=== PATIENT | female | born 1990 ===

== ENCOUNTER 2017-06-25 08:34 | Emergency (ER) | payer OTHER ==
[2017-06-25 08:52] VITALS: RESP 18; TEMP 98.3
[2017-06-25] MEDS ORDERED: Albuterol-Ipratrop 3 mg / 0.5 (3 ml) UD IH STA (09:26)
--- NOTE | 2017-06-25 09:34 | ED PDOC ---
Arrival/HPI - General Chief Complaint: Cough, Cold, Congestion Time Seen by Provider: 06/25/17 09:17 Historian: Patient - History of Present Illness Narrative History of Present Illness (Text): 06/25/17 09:26 A 27 year old female, whose past medical history includes asthma as a child, presents to the emergency department with a complaint of approximately 3 day duration congestion, chest tightness, and cough with yellow phlegm. The patient states that it is difficult to take a deep breath and that the coughing worsens at night. She notes that she has been taking Mucinex for her symptoms with no relief. The patient denies fevers, chills, dizziness, sore throat, abdominal pain, nausea, vomiting, diarrhea, back pain, neck pain, urinary/bowel changes, or any other complaint. PMD: None Time/Duration: Other (3 Days) Symptom Onset: Sudden Symptom Course: Unchanged Activities at Onset: Rest, Light Context: Home Past Medical History - Provider Review Nursing Documentation Reviewed: Yes - Infectious Disease Hx of Infectious Diseases: None - Pulmonary Hx Asthma: Yes - Psychiatric Hx Substance Use: No Family/Social History - Physician Review Nursing Documentation Reviewed: Yes Family/Social History: No Known Family HX Smoking Status: Never Smoked Hx Alcohol Use: No Hx Substance Use: No Allergies/Home Meds Allergies/Adverse Reactions: Allergies No Known Allergies Allergy (Verified 06/25/17 08:47) Review of Systems - Physician Review All systems were reviewed & negative as marked: Yes - Review of Systems Constitutional: absent: Fevers, Night Sweats ENT: Rhinorrhea, Sinus Congestion. absent: Sore Throat Respiratory: Cough, Sputum (Yellow) Cardiovascular: Other (Chest tightness) Gastrointestinal: absent: Abdominal Pain, Stool Changes, Diarrhea, Nausea, Vomiting Genitourinary Female: absent: Urine Output Changes Musculoskeletal: absent: Back Pain, Neck Pain Neurological: absent: Dizziness Physical Exam Vital Signs Reviewed: Yes Vital Signs Temp Pulse Resp BP Pulse Ox 06/25/17 11:28 89 18 113/71 97 06/25/17 08:45 98.3 F 96 H 18 111/74 98 Temperature: Afebrile Blood Pressure: Normal Pulse: Tachycardic Respiratory Rate: Normal Appearance: Positive for: Well-Appearing, Non-Toxic, Comfortable Pain Distress: None Mental Status: Positive for: Alert and Oriented X 3 - Systems Exam Head: Present: Atraumatic, Normocephalic Pupils: Present: PERRL Extroacular Muscles: Present: EOMI Conjunctiva: Present: Normal Mouth: Present: Moist Mucous Membranes Neck: Present: Normal Range of Motion Respiratory/Chest: Present: Good Air Exchange, Wheezes (Trace expiratory wheezing. ) Cardiovascular: Present: Regular Rate and Rhythm, Normal S1, S2. No: Murmurs Abdomen: Present: Normal Bowel Sounds. No: Tenderness, Distention, Peritoneal Signs Back: Present: Normal Inspection Upper Extremity: Present: Normal Inspection. No: Cyanosis, Edema Lower Extremity: Present: Normal Inspection. No: Edema Neurological: Present: GCS=15, CN II-XII Intact, Speech Normal Skin: Present: Warm, Dry, Normal Color. No: Rashes Psychiatric: Present: Alert, Oriented x 3, Normal Insight, Normal Concentration Medical Decision Making ED Course and Treatment: 06/25/17 09:35 Impression: A 27 year old female presents to the emergency department with chest tightness, cough, and congestion for the past 3 days. Differential Diagnosis included but are not limited to: Rule out PNA vs. asthma exacerbation Plan: -- Chest X-ray -- Tylenol and Duoneb -- Reassess and disposition Progress Notes: CHEST X-RAY Dictator : Jose Hester MD Report Date : 06/25/2017 11:06:43 IMPRESSION: No active disease. 06/27/17 12:44 Paitent is feeling much better. CXR is normal. Influenza negative. Patient will follow up with primary care doctor and return to the ED if symptoms worsen. Advised to take Robitussion, Prednisone and Albuterol as prescribed. - Lab Interpretations Lab Results: Lab Results 06/25/17 10:00: Urine HCG, Qual Negative 06/25/17 09:50: Influenza Typ A,B (EIA) Negative for flu a/b - RAD Interpretation Radiology Orders: 06/25/17 09:26 CHEST TWO VIEWS (PA/LAT) [RAD] Stat - Medication Orders Current Medication Orders: Discontinued Medications Acetaminophen (Tylenol 325mg Tab) 975 mg PO STAT STA Stop: 06/25/17 09:27 Last Admin: 06/25/17 09:54 Dose: 975 mg MAR Pain/Vitals Document 06/25/17 09:54 EQ (Rec: 06/25/17 09:54 EQ [id number]) Pain Reassessment Is This A Pain ReAssessment? No Sleep Is patient sleeping during reassessment? No Presence of Pain Presence of Pain Yes Pain Scale Used Pain Scale Used Numeric Albuterol/Ipratropium (Duoneb 3 Mg/0.5 Mg (3 Ml) Ud) 3 ml IH STAT STA Stop: 06/25/17 09:27 Last Admin: 06/25/17 09:54 Dose: 3 ml - Scribe Statement The provider has reviewed the documentation as recorded by the Dimitri Joiner Provider Scribe Attestation: All medical record entries made by the Scribe were at my direction and personally dictated by me. I have reviewed the chart and agree that the record accurately reflects my personal performance of the history, physical exam, medical decision making, and the department course for this patient. I have also personally directed, reviewed, and agree with the discharge instructions and disposition. Disposition/Present on Arrival - Present on Arrival Any Indicators Present on Arrival: No History of DVT/PE: No History of Uncontrolled Diabetes: No Urinary Catheter: No History of Decub. Ulcer: No History Surgical Site Infection Following: None - Disposition Have Diagnosis and Disposition been Completed?: Yes Diagnosis: URI (upper respiratory infection) Disposition: HOME/ ROUTINE Disposition Time: 11:28 Patient Plan: Discharge Condition: IMPROVED Discharge Instructions (ExitCare): Asthma (ED), Upper Respiratory Infection (ED ) Additional Instructions: Ms Stanford, thank you for letting us take care of you today. Your provider was Dr. Skinner. You were treated for Asthma, Upper Respiratory Infection. The emergency medical care you received today was directed at your acute symptoms. If you were prescribed any medication, please fill it and take as directed. It may take several days for your symptoms to resolve. Return to the Emergency Department if your symptoms worsen, do not improve, or if you have any other problems. Please contact your doctor or call one of the physicians/clinics you have been referred to that are listed on the Patient Visit Information form that is included in your discharge packet. Bring any paperwork you were given at discharge with you along with any medications you are taking to your follow up visit. Our treatment cannot replace ongoing medical care by a primary care provider (PCP) outside of the emergency department. Thank you for allowing the [facility] team to be part of your care today. If you had an X-Ray or CT scan: A Radiologist will review the ED reading if any change in treatment is needed we will contact you. If you had a blood, urine, or wound culture: It will take several days for the results, if any change in treatment is needed we will contact you. If you had an STI test: It will take 48 hours for the results. Please call after 1 week if you have not heard back. Prescriptions: Albuterol HFA [Ventolin HFA 90 mcg/actuation (8 g)] 2 puff IH Q4 #1 puff Guaifenesin/Pseudoephedrne HCl [Mucinex D ER 1,200-120 mg Tab] 1 each PO BID PRN #20 tab.er.12h PRN Reason: congestion predniSONE [predniSONE Tab] 40 mg PO DAILY #10 tab Referrals: Klaus Teague MD [Staff Provider] - Follow up with primary Forms: [facility] (Angolan), WORK NOTE
--- NOTE | 2017-06-25 11:08 | RAD ---
HISTORY: cough r/o pna COMPARISON: No prior. TECHNIQUE: Chest PA and lateral FINDINGS: LUNGS: No active pulmonary disease. PLEURA: No significant pleural effusion identified. No pneumothorax apparent. CARDIOVASCULAR: Normal. OSSEOUS STRUCTURES: No significant abnormalities. VISUALIZED UPPER ABDOMEN: Normal. OTHER FINDINGS: None. IMPRESSION: No active disease.
[2017-06-25 11:29] VITALS: BP 113/71; PULSE 89; O2SAT 97
== END 2017-06-25 11:43 | disposition home or self-care (01) ==
LOC: ED 08:34
DX: J06.9 Acute upper respiratory infection, unspecified (principal)

== ENCOUNTER 2017-07-26 14:39 | Emergency (ER) | payer BC, OTHER ==
[2017-07-26 15:14] VITALS: PULSE 100; TEMP 98.5
[2017-07-26 15:35] LABS: BASO # 0.01 K/mm3 (0.0-2.0); BASO % 0.2 % (0.0-3.0); EOS % 0.2 % (1.5-5.0); GRAN # 3.84 (1.4-6.5); GRAN % 75.7 % (50.0-68.0); HEMOGLOBIN 11.8 g/dL (12.0-16.0); LYMPH # 0.8 (1.2-3.4); MEAN CELL VOLUME 91.6 fl (80.0-105.0); MEAN CORPUSCULAR HEMOGLOBIN 30.1 pg (25.0-35.0); MEAN CORPUSCULAR HGB CONC 32.9 g/dl (31.0-37.0); MEAN PLATELET VOLUME 10.7 fl (7.0-11.0); MONO # 0.5 (0.1-0.6); MONO % 8.9 % (1.0-6.0); RBC 3.92 10^6/uL (3.5-6.1); RED CELL DISTRIBUTION WIDTH 13.6 % (11.5-14.5); WHITE BLOOD COUNT 5.1 10^3/ul (4.5-11.0)
[2017-07-26] MEDS ORDERED: Sodium Chloride 0.9% 1,000 ML IV STA (15:37)
[2017-07-26 15:40] LABS: URINE BILIRUBIN NEGATIVE (NEGATIVE); URINE BLOOD NEGATIVE (NEGATIVE); URINE GLUCOSE (UA) NEGATIVE (NEGATIVE); URINE LEUKOCYTE ESTERASE TRACE Leu/uL (NEGATIVE); URINE NITRATE NEGATIVE (NEGATIVE); URINE PROTEIN TRACE mg/dL (<30 mg/dL); URINE UROBILINOGEN 0.2 E.U./dL (<1 E.U./dL)
[2017-07-26 15:42] LABS: HCG,QUALITATIVE URINE NEGATIVE (NEGATIVE); URINE APPEARANCE SL CLOUDY (CLEAR); URINE COLOR YELLOW (YELLOW)
--- NOTE | 2017-07-26 15:44 | ED PDOC ---
Arrival/HPI - General Chief Complaint: Flu-like Symptoms Time Seen by Provider: 07/26/17 15:36 Historian: Patient - History of Present Illness Narrative History of Present Illness (Text): 07/26/17 15:37 27 y/o female, pmh including ovarian cyst, nkda, c/o runny nose/cough/diarrhea with fever started this morning with no recent traveling. Pt. stated that she has been having runny nose with productive coughing, 2 episodes of diarrhea this morning with no abdominal pain but had lt. pelvic pain this morning from straining while using having bowel movement but resolved, send from the urgent care to the ER for evaluation, no rash, no antibiotic use for the past 2 weeks, no numbness or tingling, no other medical or psychological complaints. Past Medical History - Provider Review Nursing Documentation Reviewed: Yes - Infectious Disease Hx of Infectious Diseases: None - Pulmonary Hx Asthma: Yes - Psychiatric Hx Substance Use: No Family/Social History - Physician Review Nursing Documentation Reviewed: Yes Family/Social History: Unknown Family HX Smoking Status: Never Smoked Hx Alcohol Use: No Hx Substance Use: No Allergies/Home Meds Allergies/Adverse Reactions: Allergies No Known Allergies Allergy (Verified 07/26/17 14:54) Review of Systems - Review of Systems Constitutional: Fatigue, Fevers Eyes: absent: Vision Changes ENT: Rhinorrhea. absent: Hearing Changes Respiratory: Cough, Sputum. absent: SOB, Wheezing Cardiovascular: absent: Chest Pain Gastrointestinal: Diarrhea. absent: Abdominal Pain, Nausea, Vomiting Genitourinary Female: absent: Hematuria, Vaginal Bleeding, Vaginal Discharge Musculoskeletal: absent: Arthralgias, Back Pain Skin: absent: Rash, Pruritis Neurological: absent: Headache Psychiatric: absent: Anxiety, Depression Physical Exam Vital Signs Reviewed: Yes Vital Signs Temp Pulse Resp BP Pulse Ox 07/26/17 15:10 98.5 F 100 H 17 110/65 98 Temperature: Afebrile Blood Pressure: Normal Pulse: Regular Respiratory Rate: Normal Appearance: Positive for: Well-Appearing, Non-Toxic Pain Distress: Mild Mental Status: Positive for: Alert and Oriented X 3 - Systems Exam Head: Present: Atraumatic, Normocephalic Pupils: Present: PERRL Extroacular Muscles: Present: EOMI Conjunctiva: Present: Normal Ears: Present: NORMAL TM, Normal Canal. No: Erythema Mouth: Present: Moist Mucous Membranes Nose (External): Present: Atraumatic. No: Abrasion, Contusion, Laceration Nose (Internal): Present: Normal Inspection, No Active Bleeding. No: Rhinorrhea , Septal Hematoma, Epistaxis Neck: Present: Normal Range of Motion, Trachea Midline. No: Meningeal Signs, MIDLINE TENDERNESS, Lymphadenopathy Respiratory/Chest: Present: Clear to Auscultation, Good Air Exchange. No: Respiratory Distress, Accessory Muscle Use, Wheezes, Decreased Breath Sounds, Rales, Retracting, Rhonchi, Tachypneic, Tender to Palpation Cardiovascular: Present: Regular Rate and Rhythm, Normal S1, S2. No: Murmurs Abdomen: Present: Normal Bowel Sounds. No: Tenderness, Distention, Peritoneal Signs Back: Present: Normal Inspection. No: CVA Tenderness Upper Extremity: Present: Normal Inspection. No: Cyanosis, Edema Lower Extremity: Present: Normal Inspection. No: Edema Neurological: Present: GCS=15, Speech Normal, Motor Func Grossly Intact, Gait Normal, Memory Normal Skin: Present: Warm, Dry, Normal Color. No: Rashes Psychiatric: Present: Alert, Oriented x 3, Normal Insight, Normal Concentration Medical Decision Making ED Course and Treatment: 07/26/17 15:47 -Physical examination is unremarkable with no pelvic or GI complaints except still has viral URI symptoms. -labs/ua/rapid flu -IVF -Observe and reassess 07/26/17 17:09 -Labs are non-significant except +rapid flu, Tamiflu ordered -UA show +UTI -Urine hcg is negative -Pt. feels completely relief, eating and drinking well, walking and moving around with on pain, no other medical or psychological complaints. -Discharge home with macrobid, tamiflu, tylenol, promethazine dm, stay hydrated , bed rest, follow up with your own pmd within 2 days, return to the ER for any new or worsening signs or symptoms. - Lab Interpretations Lab Results: 07/26/17 15:15 07/26/17 15:15 Lab Results 07/26/17 15:15: Influenza Typ A,B (EIA) Pos for influenza a H 07/26/17 15:15: Sodium 137, Potassium 3.6, Chloride 104, Carbon Dioxide 24, Anion Gap 12, BUN 9, Creatinine 0.6 L, Est GFR ( Amer) > 60, Est GFR (Non -Af Amer) > 60, Random Glucose 84, Calcium 8.9, Total Bilirubin 0.3, AST 18, ALT 28, Alkaline Phosphatase 78, Total Protein 6.8, Albumin 3.9, Globulin 3.0, Albumin/Globulin Ratio 1.3, Lipase 48 07/26/17 15:15: Urine Color Yellow, Urine Appearance Sl cloudy, Urine pH 6.0, Ur Specific Mcfarland 1.020, Urine Protein Trace H, Urine Glucose (UA) Negative, Urine Ketones Negative, Urine Blood Negative, Urine Nitrate Negative, Urine Bilirubin Negative, Urine Urobilinogen 0.2, Ur Leukocyte Esterase Trace H, Urine RBC 2 - 5, Urine WBC 2 - 5, Ur Epithelial Cells 4 - 5, Amorphous Sediment Few, Urine Bacteria Many, Urine Other Uyeast, Urine HCG, Qual Negative 07/26/17 15:15: WBC 5.1, RBC 3.92, Hgb 11.8 L, Hct 35.9 L, MCV 91.6, MCH 30.1, MCHC 32.9, RDW 13.6, Plt Count 168, MPV 10.7, Gran % 75.7 H, Lymph % (Auto) 15.0 L, Beauregard % (Auto) 8.9 H, Eos % (Auto) 0.2 L, Baso % (Auto) 0.2, Gran # 3.84 , Lymph # 0.8 L, Beauregard # 0.5, Eos # 0.0, Baso # 0.01 - Medication Orders Current Medication Orders: Discontinued Medications Sodium Chloride (Sodium Chloride 0.9%) 1,000 mls @ 999 mls/hr IV .Q1H1M STA Stop: 07/26/17 16:37 Last Admin: 07/26/17 16:20 Dose: 999 mls/hr eMAR Start Stop Document 07/26/17 16:20 [email or web address] (Rec: 07/26/17 16:20 [id number]) Intravenous Solution Start Date 07/26/17 Start Time 16:20 End Date 07/26/17 Oseltamivir Phosphate (Tamiflu Cap) 75 mg PO STAT STA PRN Reason: Protocol Stop: 07/26/17 15:49 Last Admin: 07/26/17 16:20 Dose: 75 mg - PA / PROSPECTING DRILLER / Resident Statement MD/DO has reviewed & agrees with the documentation as recorded. Disposition/Present on Arrival - Present on Arrival Any Indicators Present on Arrival: No History of DVT/PE: No History of Uncontrolled Diabetes: No Urinary Catheter: No History of Decub. Ulcer: No History Surgical Site Infection Following: None - Disposition Have Diagnosis and Disposition been Completed?: Yes Diagnosis: Influenza, UTI (urinary tract infection) Disposition: HOME/ ROUTINE Disposition Time: 15:53 Patient Plan: Discharge Patient Problems: Current Active Problems Problem Status Onset Influenza Acute UTI (urinary tract infection) Acute Condition: GOOD Additional Instructions: -Discharge home with macrobid, tamiflu, tylenol, promethazine dm, stay hydrated , bed rest, follow up with your own pmd within 2 days, return to the ER for any new or worsening signs or symptoms. Prescriptions: Acetaminophen [Tylenol 325mg tab] 2 tab PO QID PRN #30 tab PRN Reason: Other Nitrofurantoin Macrocrystals [Macrobid] 100 mg PO BID #14 cap Oseltamivir Phosphate [Tamiflu] 75 mg PO BID #10 capsule Promethazine DM [Phenergan DM Syrup] 5 ml PO QID PRN #200 ml PRN Reason: Other Referrals: [facility] [place] [Outside] - Follow up with primary Forms: WORK NOTE
[2017-07-26 16:00] LABS: URINE AMORPHOUS SEDIMENT FEW; URINE BACTERIA MANY (NEG)
[2017-07-26 16:02] LABS: ALB/GLOB RATIO 1.3 (1.1-1.8); ALBUMIN 3.9 g/dL (3.0-4.8); ALT/SGPT 28 U/L (7-56); AST/SGOT 18 U/L (14-36); BLOOD UREA NITROGEN 9 mg/dL (7-21); CALCIUM 8.9 mg/dL (8.4-10.5); GFR AFRICAN-AMERICAN > 60; GFR NON-AFRICAN AMERICAN > 60; LIPASE 48 U/L (23-300)
[2017-07-26 17:23] VITALS: BP 118/61; RESP 18; O2SAT 100
== END 2017-07-26 17:28 | disposition home or self-care (01) ==
LOC: ED 14:39
DX: J11.1 Influenza due to unidentified influenza virus with other respiratory manifestations (principal); N39.0 Urinary tract infection, site not specified
CPT/HCPCS: 80053; 81001; 83690; 84703; 85025; 87086; 87804; 99283; J7040

== ENCOUNTER 2017-10-26 11:14 | Emergency (ER) | payer BC, OTHER ==
[2017-10-26 11:30] VITALS: BMI 28.1
[2017-10-26] MEDS ORDERED: Sodium Chloride 0.9% 1,000 ML IV STA (11:39)
--- NOTE | 2017-10-26 11:45 | ED PDOC ---
Arrival/HPI - General Chief Complaint: Abdominal Pain Time Seen by Provider: 10/26/17 11:28 Historian: Patient - History of Present Illness Narrative History of Present Illness (Text): 10/26/17 11:41 27-year-old female presents today with nausea, abdominal pain and diarrhea for 2 days. Patient is complaining of decreased appetite. Patient complaining of nausea without vomiting. No chest pain or shortness of breath. Patient describes a diffuse abdominal pain that has been gradually worsening. Patient denies urinary symptoms. Patient denies radiation of pain to the back. Patient states she is currently menstruating but the pain is completely different from her menstrual cramps. Patient states she has been taking Advil for pain. Patient denies fevers or chills. Denies sick contacts. Denies any other complaints. Past Medical History - Provider Review Nursing Documentation Reviewed: Yes - Travel History Have you recently traveled outside [place] w/in the past 3 mons?: No - Infectious Disease Hx of Infectious Diseases: None - Tetanus Immunization Tetanus Immunization: Unknown - Pulmonary Hx Asthma: Yes - Psychiatric Hx Substance Use: No - Anesthesia Hx Anesthesia: No Hx Anesthesia Reactions: No Hx Malignant Hyperthermia: No Family/Social History - Physician Review Nursing Documentation Reviewed: Yes Family/Social History: Unknown Family HX Smoking Status: Never Smoked Hx Alcohol Use: No Hx Substance Use: No Allergies/Home Meds Allergies/Adverse Reactions: Allergies No Known Allergies Allergy (Verified 07/26/17 14:54) Review of Systems - Review of Systems Constitutional: absent: Fatigue, Fevers Respiratory: absent: SOB, Cough Cardiovascular: absent: Chest Pain, Palpitations Gastrointestinal: Abdominal Pain, Diarrhea, Nausea, Appetite Changes. absent: Constipation, Vomiting Genitourinary Female: absent: Dysuria, Frequency, Hematuria, Vaginal Discharge Musculoskeletal: absent: Arthralgias, Back Pain, Neck Pain Skin: absent: Rash, Pruritis Neurological: absent: Headache, Dizziness Psychiatric: absent: Anxiety, Depression, Suicidal Ideation Physical Exam Vital Signs Reviewed: Yes Vital Signs Temp Pulse Resp BP Pulse Ox 10/26/17 12:52 79 18 110/79 100 10/26/17 11:27 98.2 F 85 18 108/82 100 Temperature: Afebrile Blood Pressure: Normal Pulse: Regular Respiratory Rate: Normal Appearance: Positive for: Well-Appearing, Non-Toxic, Comfortable Pain Distress: None Mental Status: Positive for: Alert and Oriented X 3 - Systems Exam Head: Present: Atraumatic Mouth: Present: Moist Mucous Membranes Neck: Present: Normal Range of Motion Respiratory/Chest: Present: Clear to Auscultation, Good Air Exchange. No: Respiratory Distress, Accessory Muscle Use Cardiovascular: Present: Regular Rate and Rhythm, Normal S1, S2. No: Murmurs Abdomen: Present: Tenderness (+ diffuse abdominal tenderness greatest in ruq, luq, periumbilical), Normal Bowel Sounds, Guarding. No: Distention, Peritoneal Signs, Rebound Back: Present: Normal Inspection. No: CVA Tenderness, Midline Tenderness, Paraspinal Tenderness Upper Extremity: Present: Normal ROM Lower Extremity: Present: Normal ROM Neurological: Present: GCS=15, Speech Normal Skin: Present: Warm, Dry, Normal Color. No: Rashes Psychiatric: Present: Alert, Oriented x 3 Medical Decision Making ED Course and Treatment: 10/26/17 11:46 Patient is nontoxic well appearing with stable vital signs presenting with [ severe] abdominal pain CBC: wnl CMP: Wnl Lipase wnl Urinalysis + blood; pt currently menstrating . CAT scan: FINDINGS: LOWER THORAX: No pneumothorax is seen. No pleural effusion is seen. No focal alveolar infiltrate is seen at the lung bases. LIVER: Liver is normal in size. There is a subcentimeter low-density left hepatic cyst appreciated. No intrahepatic ductal dilatation or solid liver mass is identified. No perihepatic collections are seen. GALLBLADDER AND BILE DUCTS: Minor gallbladder sludge is noted. No gallbladder wall thickening and/or pericholecystic fluid is noted. No gallstones are seen. Common bile duct is normal in size. PANCREAS: Unremarkable. No gross lesion or ductal dilatation. SPLEEN: Unremarkable. ADRENALS: Adrenal glands are normal in size. KIDNEYS AND URETERS: There is a tiny nonobstructing left renal calculus. No hydronephrosis or perinephric changes are seen. No renal masses are noted. Kidneys are otherwise normal in size. VASCULATURE: Unremarkable. No aortic aneurysm. BOWEL: No bowel obstruction is appreciated. A number of fluid-filled small bowel loops and right colon are appreciated. Minimal amount of pericolonic changes not excluded in the right colon. Minor colitis and/or enteritis is not excluded. Terminal ileum is also noted to be fluid filled without inflammatory change. APPENDIX: Visualized appendix is fluid filled and not enlarged. No periappendiceal inflammatory changes are seen. PERITONEUM: Unremarkable. No free fluid. No free air. LYMPH NODES: Unremarkable. No enlarged lymph nodes. BLADDER: Unremarkable. REPRODUCTIVE: Uterus is normal in size. Minimal amount of physiologic fluid is not excluded in the cul-de-sac. Small bilateral ovarian follicles are seen no presacral masses are noted. BONES: No acute fracture. OTHER FINDINGS: No free intraperitoneal air is appreciated. No inguinal hernias are noted. Negative PA agrees PA and IMPRESSION: Fluid-filled small bowel loops which are slightly prominent in the pelvis. In addition there are is mild fluid-filled right colon. Minor amount of enteritis or colitis is not excluded. No CT scan evidence of appendicitis or bowel obstruction. Patient reassessment: pt non toxic well appearing; no distress. stable vitals. Discussed all results with patient in depth will treat patient with bactrim and flagyl for colitis. pt was advised to f/u with GI specialist within the next 2 days and return immediately if symptoms worsen, persist or if new symptoms develop. Patient verbalizes understanding of discharge instructions and need for immediate followup. all aspects of this case were discussed the attending of record. Impression: Abdominal pain, colitis, gallbladder sludge Motrin every 6 hours as needed for pain increase fluids Bactrim twice daily x 10 days. Flagyl one tablet three times daily x10 days Follow up with primary care physician within the next 2 days follow up with the GI specialist within the next 2 days. Return immediately if symptoms worsen persist or if new symptoms develop: High fevers, increasing pain, vomiting, diarrhea or any other concerning symptoms develop Reassessment Condition: Re-examined, Improved - Lab Interpretations Lab Results: 10/26/17 11:50 10/26/17 11:50 Lab Results 10/26/17 11:50: WBC 4.8, RBC 4.47, Hgb 13.4, Hct 39.5, MCV 88.4 D, MCH 30.0, MCHC 33.9, RDW 13.3, Plt Count 188, MPV 10.3, Gran % 53.3, Lymph % (Auto) 28.3, [place] % (Auto) 15.9 H, Eos % (Auto) 2.1, Baso % (Auto) 0.4, Gran # 2.54, Lymph # (Auto) 1.4, [place] # (Auto) 0.8 H, Eos # (Auto) 0.1, Baso # (Auto) 0.02 10/26/17 11:50: Sodium 141, Potassium 3.4 L, Chloride 106, Carbon Dioxide 22, Anion Gap 17, BUN 14, Creatinine 0.5 L, Est GFR ( Amer) > 60, Est GFR ( Non-Af Amer) > 60, Random Glucose 77, Calcium 8.5, Total Bilirubin 0.3, AST 24, ALT 27, Alkaline Phosphatase 62, Total Protein 6.8, Albumin 3.9, Globulin 3.0, Albumin/Globulin Ratio 1.3, Lipase 44 10/26/17 11:45: Urine Color Dark yellow, Urine Appearance Slight-cloudy, Urine pH 6.0, Ur Specific [place] >= 1.030, Urine Protein 100 H, Urine Glucose (UA) Negative, Urine Ketones >=80, Urine Blood Large H, Urine Nitrate Negative, Urine Bilirubin Small H, Urine Urobilinogen 0.2, Ur Leukocyte Esterase Negative , Urine RBC 20 - 25, Urine WBC Negative, Ur Epithelial Cells 0 - 2 - RAD Interpretation Radiology Orders: 10/26/17 11:40 ABD & PELVIS IV CONTRAST ONLY [CT] Stat - Medication Orders Current Medication Orders: Ketorolac Tromethamine (Toradol) 30 mg IVP STAT STA Stop: 10/26/17 14:53 Discontinued Medications Sodium Chloride (Sodium Chloride 0.9%) 1,000 mls @ 999 mls/hr IV .Q1H1M STA Stop: 10/26/17 12:39 Last Admin: 10/26/17 11:56 Dose: 999 mls/hr eMAR Start Stop Document 10/26/17 11:56 [facility] (Rec: 10/26/17 11:56 [email or web address]) Intravenous Solution Start Date 10/26/17 Start Time 11:55 End Date 10/26/17 End time 13:55 Total Infusion Time 120 Ondansetron HCl (Zofran Inj) 4 mg IVP STAT STA Stop: 10/26/17 11:40 Last Admin: 10/26/17 11:54 Dose: 4 mg IVP Administration Document 10/26/17 11:54 [facility] (Rec: 10/26/17 11:55 [email or web address]) Charges for Administration # of IVP Administrations 1 Disposition/Present on Arrival - Present on Arrival Any Indicators Present on Arrival: No History of DVT/PE: No History of Uncontrolled Diabetes: No Urinary Catheter: No History of Decub. Ulcer: No History Surgical Site Infection Following: None - Disposition Have Diagnosis and Disposition been Completed?: Yes Diagnosis: Colitis, Abdominal pain, Gallbladder sludge Disposition: HOME/ ROUTINE Disposition Time: 14:37 Patient Plan: Discharge Patient Problems: Current Active Problems Problem Status Onset Abdominal pain Acute Colitis Acute Gallbladder sludge Acute Condition: GOOD Discharge Instructions (ExitCare): Acute Abdomen (Belly Pain) Additional Instructions: Motrin every 6 hours as needed for pain increase fluids Bactrim twice daily x 10 days. Flagyl one tablet three times daily x10 days Follow up with primary care physician within the next 2 days follow up with the GI specialist within the next 2 days. Return immediately if symptoms worsen persist or if new symptoms develop: High fevers, increasing pain, vomiting, diarrhea or any other concerning symptoms develop Prescriptions: Ibuprofen [Motrin] 600 mg PO Q6H PRN #20 tab PRN Reason: pain/fever reduction metroNIDAZOLE [Flagyl] 500 mg PO TID #30 tab Sulfamethoxazole/Trimethoprim [Bactrim DS 800 mg-160 mg] 1 tab PO BID #20 tab Referrals: Lisa Diamond MD [Staff Provider] - Follow up with primary Jani Franco MD [Staff Provider] - Follow up with primary Randy Irving MD [Staff Provider] - Follow up with primary Forms: [employer] (Persian), WORK NOTE
[2017-10-26 11:57] LABS: URINE BILIRUBIN SMALL (NEGATIVE); URINE BLOOD LARGE (NEGATIVE); URINE GLUCOSE (UA) NEGATIVE (NEGATIVE); URINE LEUKOCYTE ESTERASE NEGATIVE Leu/uL (NEGATIVE); URINE PROTEIN 100 mg/dL (<30 mg/dL); URINE UROBILINOGEN 0.2 E.U./dL (<1 E.U./dL)
[2017-10-26 11:58] LABS: URINE APPEARANCE SLIGHT-CLOUDY (CLEAR); URINE COLOR DARK YELLOW (YELLOW)
[2017-10-26 12:01] LABS: URINE EPITHELIAL CELLS 0 - 2 /hpf (0-5); URINE RBC 20 - 25 /hpf (0-2); URINE WBC NEGATIVE /hpf (0-6)
[2017-10-26 12:09] LABS: BASO # 0.02 K/mm3 (0.0-2.0); BASO % 0.4 % (0.0-3.0); EOS # 0.1 (0.0-0.7); EOS % 2.1 % (1.5-5.0); GRAN # 2.54 (1.4-6.5); GRAN % 53.3 % (50.0-68.0); HEMOGLOBIN 13.4 g/dL (12.0-16.0); LYMPH # 1.4 (1.2-3.4); LYMPH % 28.3 % (22.0-35.0); MEAN CELL VOLUME 88.4 fl (80.0-105.0); MEAN CORPUSCULAR HGB CONC 33.9 g/dl (31.0-37.0); MEAN PLATELET VOLUME 10.3 fl (7.0-11.0); MONO # 0.8 (0.1-0.6); MONO % 15.9 % (1.0-6.0); RBC 4.47 10^6/uL (3.5-6.1); RED CELL DISTRIBUTION WIDTH 13.3 % (11.5-14.5); WHITE BLOOD COUNT 4.8 10^3/ul (4.5-11.0)
[2017-10-26 12:18] LABS: ALB/GLOB RATIO 1.3 (1.1-1.8); ALBUMIN 3.9 g/dL (3.0-4.8); ALT/SGPT 27 U/L (7-56); AST/SGOT 24 U/L (14-36); BLOOD UREA NITROGEN 14 mg/dL (7-21); CALCIUM 8.5 mg/dL (8.4-10.5); GFR AFRICAN-AMERICAN > 60; GFR NON-AFRICAN AMERICAN > 60; LIPASE 44 U/L (23-300)
[2017-10-26] MEDS ORDERED: Iohexol 350 MG/100 ML VIAL ONE (12:23)
--- NOTE | 2017-10-26 13:34 | CT ---
PROCEDURE: CT Abdomen and Pelvis with contrast HISTORY: abd pain, diarrhea COMPARISON: None. TECHNIQUE: Contrast dose: 100 milliliters Radiation dose: Total exam DLP = 653 mGy-cm. This CT exam was performed using one or more of the following dose reduction techniques: Automated exposure control, adjustment of the mA and/or kV according to patient size, and/or use of iterative reconstruction technique. FINDINGS: LOWER THORAX: No pneumothorax is seen. No pleural effusion is seen. No focal alveolar infiltrate is seen at the lung bases. LIVER: Liver is normal in size. There is a subcentimeter low-density left hepatic cyst appreciated. No intrahepatic ductal dilatation or solid liver mass is identified. No perihepatic collections are seen. GALLBLADDER AND BILE DUCTS: Minor gallbladder sludge is noted. No gallbladder wall thickening and/or pericholecystic fluid is noted. No gallstones are seen. Common bile duct is normal in size. PANCREAS: Unremarkable. No gross lesion or ductal dilatation. SPLEEN: Unremarkable. ADRENALS: Adrenal glands are normal in size. KIDNEYS AND URETERS: There is a tiny nonobstructing left renal calculus. No hydronephrosis or perinephric changes are seen. No renal masses are noted. Kidneys are otherwise normal in size. VASCULATURE: Unremarkable. No aortic aneurysm. BOWEL: No bowel obstruction is appreciated. A number of fluid-filled small bowel loops and right colon are appreciated. Minimal amount of pericolonic changes not excluded in the right colon. Minor colitis and/or enteritis is not excluded. Terminal ileum is also noted to be fluid filled without inflammatory change. APPENDIX: Visualized appendix is fluid filled and not enlarged. No periappendiceal inflammatory changes are seen. PERITONEUM: Unremarkable. No free fluid. No free air. LYMPH NODES: Unremarkable. No enlarged lymph nodes. BLADDER: Unremarkable. REPRODUCTIVE: Uterus is normal in size. Minimal amount of physiologic fluid is not excluded in the cul-de-sac. Small bilateral ovarian follicles are seen no presacral masses are noted. BONES: No acute fracture. OTHER FINDINGS: No free intraperitoneal air is appreciated. No inguinal hernias are noted. Negative PA agrees PA and IMPRESSION: Fluid-filled small bowel loops which are slightly prominent in the pelvis. In addition there are is mild fluid-filled right colon. Minor amount of enteritis or colitis is not excluded. No CT scan evidence of appendicitis or bowel obstruction.
[2017-10-26 15:37] VITALS: BP 133/71; PULSE 77; RESP 18; TEMP 97.9; O2SAT 100
[2017-10-26] MEDS ORDERED: Tmp-Smz 800 mg-160 mg DS Tab PO STA (15:46)
== END 2017-10-26 16:10 | disposition home or self-care (01) ==
LOC: ED 11:14
DX: K52.9 Noninfective gastroenteritis and colitis, unspecified (principal); K82.8 Other specified diseases of gallbladder; R10.9 Unspecified abdominal pain
CPT/HCPCS: 74177; 80053; 81001; 83690; 85025; 96361; 96374; 96375; 99284; J1885; J2405; J7040; Q9967

== ENCOUNTER 2018-07-04 21:25 | Emergency (ER) | payer OTHER ==
[2018-07-04 21:35] VITALS: BMI 30.7
[2018-07-04 22:00] VITALS: RESP 16; TEMP 99; O2SAT 100
--- NOTE | 2018-07-04 22:01 | ED PDOC ---
Arrival/HPI - General Historian: Patient - History of Present Illness Narrative History of Present Illness (Text): 07/04/18 21:58 28 y/o female, pmh including cholelithiasis, nkda, c/o throat itching and coughing after eating hazelnut x 2 hours. Pt. stated that she is allergic to nuts, trying to the hazelnut tonight, started to have throat itching and coughing, started to panic and feel shortness of breath but resolved, no medication taken at home prior to arrival, no chest pain or shortness of breath, no night sweat, no dizziness, no change in vision, no other medical or psychological complaints. Past Medical History - Provider Review Nursing Documentation Reviewed: Yes - Infectious Disease Hx of Infectious Diseases: None - Tetanus Immunization Tetanus Immunization: Unknown - Pulmonary Hx Asthma: Yes - Psychiatric Hx Substance Use: No - Anesthesia Hx Anesthesia: No Hx Anesthesia Reactions: No Hx Malignant Hyperthermia: No Family/Social History - Physician Review Nursing Documentation Reviewed: Yes Family/Social History: Unknown Family HX Smoking Status: Never Smoked Hx Alcohol Use: No Hx Substance Use: No Allergies/Home Meds Allergies/Adverse Reactions: Allergies No Known Allergies Allergy (Verified 07/04/18 21:35) Review of Systems - Review of Systems Constitutional: absent: Fatigue, Fevers Eyes: absent: Vision Changes ENT: Other (+throat itching). absent: Hearing Changes Respiratory: Cough. absent: SOB Cardiovascular: absent: Chest Pain Musculoskeletal: absent: Arthralgias, Back Pain Skin: absent: Rash, Pruritis Neurological: absent: Headache, Dizziness Psychiatric: absent: Anxiety, Depression, Suicidal Ideation Physical Exam - Systems Exam Head: Present: Atraumatic, Normocephalic Pupils: Present: PERRL Extroacular Muscles: Present: EOMI Conjunctiva: Present: Normal Ears: Present: NORMAL TM, Normal Canal. No: Erythema Mouth: Present: Moist Mucous Membranes Pharnyx: Present: Normal. No: ERYTHEMA, EXUDATE, TONSILS ENLARGED, Peritonsilar Swelling, Uvular Deviation, Muffled/Hoarse Voice, Strider, Soft Palate/Uvular Edema Nose (External): Present: Atraumatic. No: Abrasion, Contusion Nose (Internal): Present: Normal Inspection, No Active Bleeding. No: Rhinorrhea, Septal Hematoma, Epistaxis Neck: Present: Normal Range of Motion. No: MIDLINE TENDERNESS Respiratory/Chest: Present: Clear to Auscultation, Good Air Exchange. No: Res piratory Distress, Accessory Muscle Use, Wheezes, Decreased Breath Sounds, Rales, Retracting, Rhonchi, Tachypneic, Tender to Palpation Cardiovascular: Present: Regular Rate and Rhythm, Normal S1, S2. No: Murmurs Abdomen: No: Tenderness, Distention, Peritoneal Signs Back: Present: Normal Inspection Upper Extremity: Present: Normal Inspection. No: Cyanosis, Edema Lower Extremity: Present: Normal Inspection. No: Edema Neurological: Present: GCS=15, CN II-XII Intact, Speech Normal Skin: Present: Warm, Dry, Normal Color. No: Rashes Psychiatric: Present: Alert, Oriented x 3, Normal Insight, Normal Concentration Medical Decision Making ED Course and Treatment: 07/04/18 22:01 -benadryl/pepcid/prednisone. 07/04/18 22:50 -Urine hcg is negative -Pt. is asymptomatic, tolerating po solid and fluid, talking and smiling,no coughing or throat discomfort, no cardiopulmonary or ENT complaints. -Discharge home with benadryl, pepcid, prednisone, follow up with your own pmd and have your own pmd perform food allergy panel for your, avoid contact or eating the same allergen food again, return to the ER for any new or worsening signs or symptoms. 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 Disposition/Present on Arrival - Present on Arrival Any Indicators Present on Arrival: No History of DVT/PE: No History of Uncontrolled Diabetes: No Urinary Catheter: No History of Decub. Ulcer: No History Surgical Site Infection Following: None - Disposition Have Diagnosis and Disposition been Completed?: Yes Diagnosis: Food allergy Disposition: HOME/ ROUTINE Disposition Time: 22:03 Patient Plan: Discharge Patient Problems: Current Active Problems Problem Status Onset Food allergy Acute Condition: IMPROVED Additional Instructions: -Discharge home with benadryl, pepcid, prednisone, follow up with your own pmd and have your own pmd perform food allergy panel for your, avoid contact or eating the same allergen food again, return to the ER for any new or worsening signs or symptoms. Prescriptions: DiphenhydrAMINE [Benadryl] 25 mg PO QID PRN #20 cap PRN Reason: Other Famotidine [Pepcid] 20 mg PO BID #10 tab Prednisone 50 mg PO TID #3 tablet Referrals: [facility] [place] [Outside] - Follow up with primary Forms: WORK NOTE
[2018-07-04 23:11] VITALS: BP 116/72; PULSE 72
== END 2018-07-04 23:05 | disposition home or self-care (01) ==
LOC: ED 21:25
DX: T78.1XXA Other adverse food reactions, not elsewhere classified, initial encounter (principal); X58.XXXA Exposure to other specified factors, initial encounter

== ENCOUNTER 2018-07-23 07:54 | Emergency (ER) | payer OTHER ==
[2018-07-23 08:10] VITALS: BMI 29.9
[2018-07-23] MEDS ORDERED: Alum-Mag Hydrox-Simethicone Susp (30 mL) PO STA (08:26)
[2018-07-23] MEDS ORDERED: Sodium Chloride 0.9% 1,000 ML IV STA (08:26)
--- NOTE | 2018-07-23 08:32 | ED PDOC ---
Arrival/HPI - General Chief Complaint: Abdominal Pain Time Seen by Provider: 07/23/18 08:10 Historian: Patient - History of Present Illness Narrative History of Present Illness (Text): 07/23/18 08:27 28 year old female, whose past medical history includes cholelithiasis,, presents to the emergency department complaining of abdominal pain, vomiting, and diarrhea, for the past day. Patient describes a sharp abdominal pain that b thai at midnight last night, she also reports multiple episodes of vomiting and watery diarrhea. She notes associated weakness and fatigue. Patient denies urinary symptoms, fevers, chills, headache, chest pain, shortness of breath, dyspnea on exertion, cough, back pain, neck pain, or any other complaint. PMD: Dr. Ellison Time/Duration: 24 hours Symptom Onset: Gradual Symptom Course: Unchanged Activities at Onset: Light Context: Home Past Medical History - Provider Review Nursing Documentation Reviewed: Yes - Infectious Disease Hx of Infectious Diseases: None - Tetanus Immunization Tetanus Immunization: Unknown - Reproductive Menopause: No - Cardiac Hx Cardiac Disorders: No - Pulmonary Hx Asthma: Yes - Psychiatric Hx Substance Use: No - Anesthesia Hx Anesthesia: No Hx Anesthesia Reactions: No Hx Malignant Hyperthermia: No Family/Social History - Physician Review Nursing Documentation Reviewed: Yes Family/Social History: No Known Family HX Smoking Status: Never Smoked Hx Alcohol Use: No Hx Substance Use: No Allergies/Home Meds Allergies/Adverse Reactions: Allergies No Known Allergies Allergy (Verified 07/04/18 21:35) Review of Systems - Physician Review All systems were reviewed & negative as marked: Yes - Review of Systems Constitutional: absent: Fevers Eyes: absent: Vision Changes Respiratory: absent: SOB, Cough Cardiovascular: absent: Chest Pain Gastrointestinal: Abdominal Pain, Diarrhea, Vomiting Genitourinary Female: absent: Dysuria, Frequency Musculoskeletal: absent: Back Pain, Neck Pain Skin: absent: Rash Neurological: absent: Headache, Dizziness Physical Exam Vital Signs Reviewed: Yes Vital Signs Temp Pulse Resp BP Pulse Ox 07/23/18 08:14 98.6 F 96 H 18 91/54 L 97 Temperature: Afebrile Blood Pressure: Hypotensive Pulse: Tachycardic Respiratory Rate: Normal Appearance: Positive for: Well-Appearing, Non-Toxic, Comfortable Pain Distress: None Mental Status: Positive for: Alert and Oriented X 3 - Systems Exam Head: Present: Atraumatic, Normocephalic Pupils: Present: PERRL Extroacular Muscles: Present: EOMI Conjunctiva: Present: Normal Mouth: Present: Moist Mucous Membranes Neck: Present: Normal Range of Motion Respiratory/Chest: Present: Clear to Auscultation, Good Air Exchange. No: Respiratory Distress, Accessory Muscle Use Cardiovascular: Present: Regular Rate and Rhythm, Normal S1, S2. No: Murmurs Abdomen: Present: Tenderness (epigastric tenderness). No: Distention, Peritoneal Signs, Rebound, Guarding Back: Present: Normal Inspection Upper Extremity: Present: Normal Inspection. No: Cyanosis, Edema Lower Extremity: Present: Normal Inspection. No: Edema Neurological: Present: GCS=15, CN II-XII Intact, Speech Normal Skin: Present: Warm, Dry, Normal Color. No: Rashes Psychiatric: Present: Alert, Oriented x 3, Normal Insight, Normal Concentration Medical Decision Making ED Course and Treatment: 07/23/18 08:33 Impression: 28 year old female who presents to the emergency department complaining of abdominal pain, vomiting, and diarrhea. Differential Diagnosis included but are not limited to: Gastroenteritis Plan: -- Labs -- Maalox -- Pepcid -- IV Fluids -- Zofran -- Reassess and disposition Prior Visits: Notes and results from previous visits were reviewed. Progress Notes: 07/23/18 09:29 Patient is feeling better. Her abdomen is soft, NT, ND. BS x 4. She is tolerating PO fluids with no vomiting. She is with her who will take her home. She was advised to return to the ED if symptoms worsen or any other concern. She will f/u with her PMD. - Lab Interpretations I have reviewed the lab results: Yes - Medication Orders Current Medication Orders: Al Hydrox/Mg Hydrox/Simethicone (Maalox Plus 30 Ml) 30 ml PO STAT STA Stop: 07/23/18 08:27 Famotidine (Pepcid) 20 mg IVP STAT STA Stop: 07/23/18 08:27 Sodium Chloride (Sodium Chloride 0.9%) 1,000 mls @ 1,000 mls/hr IV .Q1H STA Stop: 07/23/18 09:25 Ondansetron HCl (Zofran Inj) 4 mg IVP STAT STA Stop: 07/23/18 08:27 - Scribe Statement The provider has reviewed the documentation as recorded by the Dimitri Benz Provider Scribe Attestation: All medical record entries made by the Dimitri were at my direction and personally dictated by me. I have reviewed the chart and agree that the record accurately reflects my personal performance of the history, physical exam, medical decision making, and the department course for this patient. I have also personally directed, reviewed, and agree with the discharge instructions and disposition. Disposition/Present on Arrival - Present on Arrival Any Indicators Present on Arrival: No History of DVT/PE: No History of Uncontrolled Diabetes: No Urinary Catheter: No History of Decub. Ulcer: No History Surgical Site Infection Following: CABG - Mediastinitis, None - Disposition Have Diagnosis and Disposition been Completed?: Yes Diagnosis: Gastroenteritis Disposition: HOME/ ROUTINE Disposition Time: 09:29 Patient Plan: Discharge Patient Problems: Current Active Problems Problem Status Onset Gastroenteritis Acute Condition: IMPROVED Discharge Instructions (ExitCare): Diarrhea in Adolescents and Adults Additional Instructions: TOBI JEAN, thank you for letting us take care of you today. Your provider was Byran Skinner DO and you were treated for Gastroenteritis. The emergency medical care you received today was directed at your acute symptoms. If you were prescribed any medication, please fill it and take as directed. It may take several days for your symptoms to resolve. Return to the Emergency Department if your symptoms worsen, do not improve, or if you have any other problems. Please contact your doctor or call one of the physicians/clinics you have been referred to that are listed on the Patient Visit Information form that is included in your discharge packet. Bring any paperwork you were given at discharge with you along with any medications you are taking to your follow up visit. Our treatment cannot replace ongoing medical care by a primary care provider outside of the emergency department. Thank you for allowing the [facility] team to be part of your care today. If you had an X-Ray or CT scan: A Radiologist will review the ED reading if any change in treatment is needed we will contact you. If you had a blood, urine, or wound culture: It will take several days for the results, if any change in treatment is needed we will contact you. If you had an STI test: It will take 48 hours for the results. Please call after 1 week if you have not heard back. Prescriptions: Aluminum Hydroxide/Magnesium H [Maalox 30 ml] 30 ml PO Q8 #1 bottle Ranitidine HCl [Zantac] 150 mg PO BID PRN #30 tablet PRN Reason: Pain, Mild (1-3) Referrals: Reji Ellison MD [Primary Care Provider] - Follow up with primary Forms: [facility] (Chinese), WORK NOTE
[2018-07-23 09:10] LABS: ALB/GLOB RATIO 1.2 (1.1-1.8); ALBUMIN 4.2 g/dL (3.0-4.8); ALT/SGPT 23 U/L (7-56); AST/SGOT 20 U/L (14-36); BLOOD UREA NITROGEN 16 mg/dL (7-21); GFR NON-AFRICAN AMERICAN > 60; LIPASE 40 U/L (23-300)
[2018-07-23 09:11] LABS: BASO # 0.01 K/mm3 (0.0-2.0); BASO % 0.1 % (0.0-3.0); EOS % 0.1 % (1.5-5.0); GRAN # 10.87 (1.4-6.5); GRAN % 92.6 % (50.0-68.0); HEMOGLOBIN 13.4 g/dL (12.0-16.0); LYMPH # 0.6 (1.2-3.4); LYMPH % 4.9 % (22.0-35.0); MEAN CELL VOLUME 89.6 fl (80.0-105.0); MEAN CORPUSCULAR HEMOGLOBIN 29.8 pg (25.0-35.0); MEAN CORPUSCULAR HGB CONC 33.3 g/dl (31.0-37.0); MEAN PLATELET VOLUME 10.3 fl (7.0-11.0); MONO # 0.3 (0.1-0.6); MONO % 2.3 % (1.0-6.0); PLATELET COUNT 219 10^3/uL (120.0-450.0); RED CELL DISTRIBUTION WIDTH 13.2 % (11.5-14.5); WHITE BLOOD COUNT 11.7 10^3/uL (4.5-11.0)
[2018-07-23 09:50] VITALS: BP 120/65; PULSE 89; RESP 17; TEMP 98; O2SAT 100
[2018-07-23 10:12] LABS: LYMPHOCYTE 2 % (22.0-35.0); MONOCYTE 4 % (1.0-6.0); NEUTROPHIL 94 % (50.0-70.0)
[2018-07-23 10:13] LABS: PLATELET ESTIMATE NORMAL (NORMAL)
== END 2018-07-23 09:46 | disposition home or self-care (01) ==
LOC: ED 07:54
DX: K52.9 Noninfective gastroenteritis and colitis, unspecified (principal)
CPT/HCPCS: 80053; 81025; 83690; 83735; 85025; 96361; 96374; 96375; 99284; J2405; J7030

== ENCOUNTER 2018-08-24 17:30 | Emergency (ER) | payer OTHER | END 2018-08-24 18:47 | disposition home or self-care (01) | LOC: ED 17:30 ==

== ENCOUNTER 2018-09-05 21:40 | Emergency (ER) | payer OTHER | END 2018-09-06 04:50 | disposition home or self-care (01) | LOC: ED 09-06 04:50 ==

== ENCOUNTER 2018-09-15 18:55 | Emergency (ER) | payer OTHER ==
[2018-09-15 19:58] VITALS: BMI 30.7
[2018-09-15 20:00] VITALS: RESP 18; TEMP 97.9
[2018-09-15] MEDS ORDERED: Sodium Chloride 0.9% 1,000 ML IV STA (20:30)
[2018-09-15 21:00] LABS: BASO # 0.03 K/mm3 (0.0-2.0); BASO % 0.3 % (0.0-3.0); EOS # 0.1 (0.0-0.7); EOS % 1.2 % (1.5-5.0); HEMOGLOBIN 12.3 g/dL (12.0-16.0); LYMPH % 29.2 % (22.0-35.0); MEAN CELL VOLUME 91.4 fl (80.0-105.0); MEAN CORPUSCULAR HEMOGLOBIN 29.3 pg (25.0-35.0); MEAN PLATELET VOLUME 9.6 fl (7.0-11.0); MONO # 0.6 (0.1-0.6); MONO % 5.8 % (1.0-6.0); RBC 4.2 10^6/uL (3.5-6.1); RED CELL DISTRIBUTION WIDTH 13.5 % (11.5-14.5); URINE APPEARANCE CLEAR (CLEAR); URINE BILIRUBIN NEGATIVE (NEGATIVE); URINE BLOOD NEGATIVE (NEGATIVE); URINE COLOR YELLOW (YELLOW); URINE GLUCOSE (UA) NEGATIVE (NEGATIVE); URINE LEUKOCYTE ESTERASE NEGATIVE Leu/uL (NEGATIVE); URINE PROTEIN TRACE mg/dL (<30 mg/dL); URINE UROBILINOGEN 0.2 E.U./dL (<1 E.U./dL); WHITE BLOOD COUNT 10.1 10^3/uL (4.5-11.0)
[2018-09-15 21:12] LABS: ALB/GLOB RATIO 1.2 (1.1-1.8); ALT/SGPT 21 U/L (7-56); AST/SGOT 29 U/L (14-36); BLOOD UREA NITROGEN 17 mg/dL (7-21); CALCIUM 9.1 mg/dL (8.4-10.5); GFR NON-AFRICAN AMERICAN > 60; LIPASE 84 U/L (23-300)
[2018-09-15 21:17] LABS: URINE BACTERIA SMALL /hpf; URINE EPITHELIAL CELLS 0 - 2 /hpf (0-5); URINE WBC 0 - 2 /hpf (0-6)
--- NOTE | 2018-09-15 22:07 | ED PDOC ---
Arrival/HPI - General Chief Complaint: Female Genitourinary Time Seen by Provider: 09/15/18 19:21 Historian: Patient - History of Present Illness Narrative History of Present Illness (Text): 09/15/18 22:01 28-year-old female presents today with right sided upper abdominal pain, bilateral lower abdominal pain with radiation to the right flank. Patient is complaining about dysuria. Patient denies vaginal bleeding or vaginal di scharge. No chest pain or shortness of breath. No nausea vomiting diarrhea or constipation. No medications have been taken for pain at home. No other complaints Past Medical History - Provider Review Nursing Documentation Reviewed: Yes - Travel History Have you recently traveled outside [place] w/in the past 3 mons?: No - Infectious Disease Hx of Infectious Diseases: None - Tetanus Immunization Tetanus Immunization: Unknown - Cardiac Hx Cardiac Disorders: No - Pulmonary Hx Respiratory Disorders: Yes Hx Asthma: Yes - Neurological Hx Neurological Disorder: No - HEENT Hx HEENT Disorder: No - Renal Hx Renal Disorder: No - Endocrine/Metabolic Hx Endocrine Disorders: No - Hematological/Oncological Hx Blood Disorders: No - Integumentary Hx Dermatological Disorder: No - Musculoskeletal/Rheumatological Hx Musculoskeletal Disorders: No - Gastrointestinal Hx Gastrointestinal Disorders: No - Genitourinary/Gynecological Hx Genitourinary Disorders: No - Psychiatric Hx Psychophysiologic Disorder: No Hx Substance Use: No - Anesthesia Hx Anesthesia: No Hx Anesthesia Reactions: No Hx Malignant Hyperthermia: No Family/Social History - Physician Review Nursing Documentation Reviewed: Yes Family/Social History: Unknown Family HX Smoking Status: Never Smoked Hx Alcohol Use: No Hx Substance Use: No Allergies/Home Meds Allergies/Adverse Reactions: Allergies No Known Allergies Allergy (Verified 09/15/18 19:58) Review of Systems - Review of Systems Constitutional: absent: Fatigue, Fevers Respiratory: absent: SOB, Cough Cardiovascular: absent: Chest Pain, Palpitations Gastrointestinal: Abdominal Pain. absent: Constipation, Diarrhea, Nausea, Vomiting Genitourinary Female: Dysuria, Frequency. absent: Hematuria, Vaginal Bleeding, Vaginal Discharge Musculoskeletal: Back Pain. absent: Arthralgias, Neck Pain Skin: absent: Rash, Pruritis Neurological: absent: Headache, Dizziness Psychiatric: absent: Anxiety, Depression, Suicidal Ideation Physical Exam Vital Signs Reviewed: Yes Vital Signs Temp Pulse Resp BP Pulse Ox 09/15/18 19:58 97.9 F 75 18 118/76 98 Temperature: Afebrile Blood Pressure: Normal Pulse: Regular Respiratory Rate: Normal Appearance: Positive for: Well-Appearing, Non-Toxic, Comfortable Pain Distress: None Mental Status: Positive for: Alert and Oriented X 3 - Systems Exam Head: Present: Atraumatic Mouth: Present: Moist Mucous Membranes Neck: Present: Normal Range of Motion Respiratory/Chest: Present: Clear to Auscultation, Good Air Exchange. No: Respiratory Distress, Accessory Muscle Use Cardiovascular: Present: Regular Rate and Rhythm, Normal S1, S2. No: Murmurs Abdomen: Present: Tenderness (minimal rlq tenderness; ). No: Distention, Peritoneal Signs, Rebound, Guarding Back: Present: Normal Inspection. No: CVA Tenderness, Midline Tenderness, Paraspinal Tenderness Upper Extremity: Present: Normal ROM Lower Extremity: Present: Normal ROM Neurological: Present: GCS=15, Speech Normal Skin: Present: Warm, Dry, Normal Color. No: Rashes Psychiatric: Present: Alert, Oriented x 3 Medical Decision Making ED Course and Treatment: 09/15/18 22:03 Patient is nontoxic well appearing with stable vital signs presenting with abdominal pain CBC: wnl CMP: wnl lipase; wnl Urinalysis: wnl CAT scan: FINDINGS: LUNG BASES: The lung bases appear clear. No pleural effusions are seen. LIVER: Unremarkable. GALLBLADDER AND BILE DUCTS: The gallbladder appears within normal limits. No radioopaque gallstones are seen. No biliary ductal dilatation is evident. PANCREAS: Unremarkable. SPLEEN: Unremarkable. ADRENAL GLANDS: Unremarkable. KIDNEYS, URETERS, AND BLADDER: Both kidneys are normal in size and position. There is no hydronephrosis or hydroureter. A punctate non-obstructing calculus is seen in the lateral mid left renal pole. The urinary bladder appeared normal in size and configuration. STOMACH AND BOWEL: There is mucosal wall thickening and fluid in the lumen identified within the stomach, duodenum and small intestinal tract compatible with gastritis, duodenitis, diffuse enteritis. Infectious or inflammatory etiologies are thought most likely.No evidence of bowel obstruction. No evidence suggesting enteritis or colitis. APPENDIX: No evidence of acute appendicitis on CT examination. PERITONEUM: No free fluid. No free air. LYMPH NODES: No lymphadenopathy is evident. REPRODUCTIVE: Unremarkable as visualized. VASCULATURE: No evidence of abdominal aortic aneurysm. BONES: No aggressive appearing osseous lesion. No acute osseous pathology evident. IMPRESSION: 1. Evidence of gastritis, duodenitis, diffuse enteritis. 2. A punctate non-obstructing calculus is seen in the lateral mid left renal pole. Electronically signed on Sep 15, 2018 11:01:33 PM EDT by: Butch Lundberg M.D., COTY Certified By [employer] & [employer] Fellowship Trained MRI and CT Specialist Patient reassessment: pt is non toxic well appearing; no distress. stable vitals. Discussed all results with patient in depth, advised f/u with pmd and GI specialist. advised immediate return if symptoms worsen,persist or if new symptoms develop. Patient verbalizes understanding of discharge instructions and need for immediate followup. All aspects of this case were discussed the attending of record. Impression: Abdominal pain, enteritis Motrin every 6 hours as needed for pain Pepcid one tablet daily Follow up with primary care physician within the next 2 days Follow up with the GI doctor within the next 2 days. Return immediately if symptoms worsen persist or if new symptoms develop: High fevers, increasing pain, vomiting, diarrhea or any other concerning symptoms develop - Lab Interpretations Lab Results: Total Bilirubin 0.1 mg/dL (0.2-1.3) L 09/15/18 20:44 AST 29 U/L (14-36) 09/15/18 20:44 ALT 21 U/L (7-56) 09/15/18 20:44 Alkaline Phosphatase 96 U/L (38-126) 09/15/18 20:44 Total Protein 7.4 g/dL (5.8-8.3) 09/15/18 20:44 Albumin 4.0 g/dL (3.0-4.8) 09/15/18 20:44 Globulin 3.4 gm/dL 09/15/18 20:44 Albumin/Globulin Ratio 1.2 (1.1-1.8) 09/15/18 20:44 Lipase 84 U/L (23-300) 09/15/18 20:44 Urine Color Yellow (YELLOW) 09/15/18 20:44 Urine Appearance Clear (CLEAR) 09/15/18 20:44 Urine pH 6.0 (4.7-8.0) 09/15/18 20:44 Ur Specific [place] 1.025 (1.005-1.035) 09/15/18 20:44 Urine Protein Trace mg/dL (<30 mg/dL) H 09/15/18 20:44 Urine Glucose (UA) Negative mg/dL (NEGATIVE) 09/15/18 20:44 Urine Ketones Negative mg/dL (NEGATIVE) 09/15/18 20:44 Urine Blood Negative (NEGATIVE) 09/15/18 20:44 Urine Nitrate Negative (NEGATIVE) 09/15/18 20:44 Urine Bilirubin Negative (NEGATIVE) 09/15/18 20:44 Urine Urobilinogen 0.2 E.U./dL (<1 E.U./dL) 09/15/18 20:44 Ur Leukocyte Esterase Negative [place]/uL (NEGATIVE) 09/15/18 20:44 Urine RBC None /hpf (0-2) 09/15/18 20:44 Urine WBC 0 - 2 /hpf (0-6) 09/15/18 20:44 Ur Epithelial Cells 0 - 2 /hpf (0-5) 09/15/18 20:44 Urine Bacteria Small /hpf (NONE) 09/15/18 20:44 - RAD Interpretation Radiology Orders: 09/15/18 21:40 ABD & PELVIS IV CONTRAST ONLY [CT] Stat - Medication Orders Current Medication Orders: Discontinued Medications Sodium Chloride (Sodium Chloride 0.9%) 1,000 mls @ 999 mls/hr IV .Q1H1M STA Stop: 09/15/18 21:30 Last Admin: 09/15/18 20:52 Dose: 999 mls/hr eMAR Start Stop Document 09/15/18 20:52 AD (Rec: 09/15/18 20:53 AD [id number]) Intravenous Solution Start Date 09/15/18 Start Time 20:53 Disposition/Present on Arrival - Present on Arrival Any Indicators Present on Arrival: No History of DVT/PE: No History of Uncontrolled Diabetes: No Urinary Catheter: No History of Decub. Ulcer: No History Surgical Site Infection Following: None - Disposition Have Diagnosis and Disposition been Completed?: Yes Diagnosis: Abdominal pain, Enteritis Disposition: HOME/ ROUTINE Disposition Time: 23:00 Patient Plan: Discharge Condition: GOOD Discharge Instructions (ExitCare): Acute Abdomen (Belly Pain) Additional Instructions: Motrin every 6 hours as needed for pain Pepcid one tablet daily Follow up with primary care physician within the next 2 days Follow up with the GI doctor within the next 2 days. Return immediately if symptoms worsen persist or if new symptoms develop: High fevers, increasing pain, vomiting, diarrhea or any other concerning symptoms develop Prescriptions: Famotidine [Pepcid] 20 mg PO DAILY #30 tab Referrals: Reji Ellison MD [Primary Care Provider] - Follow up with primary Jani Franco MD [Staff Provider] - Follow up with primary Forms: [facility] (Australian), WORK NOTE
[2018-09-15] MEDS ORDERED: Iohexol 350 MG/100 ML VIAL ONE (22:25)
[2018-09-16 00:04] VITALS: BP 115/84; PULSE 80; O2SAT 100
--- NOTE | 2018-09-16 09:04 | CT ---
Date of service: 09/15/2018 PROCEDURE: CT Abdomen and Pelvis with contrast HISTORY: right sided abd pain COMPARISON: None. TECHNIQUE: Contrast dose: Radiation dose: Total exam DLP = 736.27 mGy-cm. This CT exam was performed using one or more of the following dose reduction techniques: Automated exposure control, adjustment of the mA and/or kV according to patient size, and/or use of iterative reconstruction technique. FINDINGS: LOWER THORAX: Unremarkable. LIVER: Unremarkable. No gross lesion or ductal dilatation. GALLBLADDER AND BILE DUCTS: Unremarkable. PANCREAS: Unremarkable. No gross lesion or ductal dilatation. SPLEEN: Unremarkable. ADRENALS: Unremarkable. No mass. KIDNEYS AND URETERS: Punctate nonobstructive calculus in the left kidney. No hydronephrosis. No solid mass. VASCULATURE: Unremarkable. No aortic aneurysm. No aortic atherosclerotic calcification or mural plaque present. BOWEL: Unremarkable. No obstruction. No gross mural thickening. APPENDIX: Normal appendix. PERITONEUM: Unremarkable. No free fluid. No free air. LYMPH NODES: Unremarkable. No enlarged lymph nodes. BLADDER: Unremarkable. REPRODUCTIVE: Unremarkable. BONES: No acute fracture. OTHER FINDINGS: None. IMPRESSION: Punctate nonobstructive calculus in the left kidney.
== END 2018-09-15 23:30 | disposition home or self-care (01) ==
LOC: ED 18:55
DX: K52.9 Noninfective gastroenteritis and colitis, unspecified (principal)
CPT/HCPCS: 74177; 80053; 81001; 81025; 83690; 85025; 87086; 99283; J7030; Q9967

== ENCOUNTER 2018-10-23 08:20 | Outpatient (CLI) | payer OTHER | END 2018-10-23 08:21 | disposition home or self-care (01) | LOC: LAB 08:20 ==